=== PATIENT | male | born 1950 | race Caucasian/White ===

== ENCOUNTER 2021-11-11 09:49 | Day surgery (SDC) | payer MEDICARE, BC ==
[~2021-11-11] VITALS: Ht 185.4 cm; Wt 93.1 kg
[2021-11-11 10:14] VITALS: BP 141/75
[2021-11-11] MEDS ORDERED: ASPI-803 PO (10:32)
[2021-11-11] MEDS ORDERED: ACET-1025 PO (10:32)
[2021-11-11] MEDS ORDERED: CARV-50 PO (10:32)
[2021-11-11] MEDS ORDERED: ATOR20TA PO (10:32)
[2021-11-11] MEDS ORDERED: RIVA20TA PO (10:32)
[2021-11-11] MEDS ORDERED: FLO0.4C PO (10:32)
[2021-11-11] MEDS ORDERED: ESOM20CA PO (10:32)
[2021-11-11] MEDS ORDERED: SPIR25TA5 PO (10:32)
[2021-11-11] MEDS ORDERED: SACU1TAB PO (10:32)
[2021-11-11] MEDS ORDERED: AMIO200T61 PO (10:32)
--- NOTE | 2021-11-11 10:36 | NUR ---
Faxed EKG to Dr. Williamson's office. Waiting for return call.
[2021-11-11] MEDS ORDERED: fentaNYL/PF 50MCG/1 ML 2ML syringe IV ONE (10:40)
[2021-11-11] MEDS ORDERED: MIDAZolam 1mg/ml 10ml vial IV ONE (10:40)
[2021-11-11] MEDS ORDERED: normal saline 1000ml 1,000 ML IV SCH (10:40)
--- NOTE | 2021-11-11 10:42 | NUR ---
Return call from . New orders, cardioversion cancelled, per
== END 2021-11-11 10:45 | disposition home or self-care (01) ==
LOC: SSTAY O 09:49
PROVIDERS: ATTEND Internal Medicine Interventional Cardiology
DX: I48.91 Unspecified atrial fibrillation (principal); Z53.8 Procedure and treatment not carried out for other reasons; I11.0 Hypertensive heart disease with heart failure; I50.9 Heart failure, unspecified; I44.7 Left bundle-branch block, unspecified; K21.9 Gastro-esophageal reflux disease without esophagitis; Z88.8 Allergy status to other drugs, medicaments and biological substances; Z79.899 Other long term (current) drug therapy
CPT/HCPCS: 93005; J7030